=== PATIENT | female | born 1995 | race Two or more races ===

== ENCOUNTER 2025-03-15 19:23 | Emergency (ER) | payer MEDICAID ==
[~2025-03-15] VITALS: Ht 147.3 cm; Wt 85.2 kg
[2025-03-15 19:57] LABS: Hematocrit 36.6 % (36.0-46.0); Hemoglobin 12.6 g/dL (12.2-16.2); Mean Corpuscular Hemoglobin 32.5 pg (28.0-32.0); Mean Corpuscular Volume 94.5 fL (80.0-100.0); Nucleated Red Blood Cells % 0.0 %
[2025-03-15 20:02] LABS: Potassium 4.0 mmol/L (3.5-5.1); Sodium 142 mmol/L (136-145)
[2025-03-15 20:03] LABS: Anion Gap 6 (5-15); Calcium 9.9 mg/dL (8.7-10.4); Carbon Dioxide 27 mmol/L (20-31)
[2025-03-15 20:08] LABS: BUN/Creatinine Ratio 7.0 (10.0-20.0); Glucose 90 mg/dL (74-106)
[2025-03-15 20:11] LABS: Urine Amorphous Crystal FEW /hpf (None Seen); Urine Protein, UAD Negative (Negative)
[2025-03-15 20:18] LABS: Blood Urea Nitrogen 7 mg/dL (9-23); Chloride 109 mmol/L (98-107)
[2025-03-15] MEDS ORDERED: NITR-87 PO (20:27)
--- NOTE | 2025-03-15 20:27 | ED.PDOC ---
General HPI Comments 29-year-old female presents to ER with complaints of pelvic pain x2 days. Patient reports she has been experiencing diffuse lower pelvic pain x2 days. Reports that she has been taking Tylenol for her pain without relief and rates her current diffuse lower pelvic pain a 10/. Patient presents to ER ambulatory on arrival, afebrile, with steady gait, in no distress. Denies fever, body aches, chills, nausea/vomiting, abdominal pain, back/flank pain, changes in urination or any further symptoms/complaints Chief Complaint: Pelvic Pain Time Seen by MD: 19:35 Primary Care Provider: UNKNOWN Reviewed notes: Nurses Notes, Medications, Allergies Allergies: Coded Allergies: NO KNOWN ALLERGIES (Unverified , 03/15/25) Home Meds Active Scripts Nitrofurantoin Monohydrate Mac (Macrobid) 100 Mg Cap, 100 MG PO BID for 5 Days, #10 CAP 0 Refills Prov:YOLANDA MEZA 03/15/25 Information Source: Patient Mode of Arrival: Ambulatory Past Medical History PAST MEDICAL HISTORY: Denies Surgical History: Tubal Ligation WEEDER THINNER History: No Pertinent WEEDER THINNER History Family History Family History: Unknown Social History Smoker: Non-Smoker Alcohol: Denies ETOH Use Drugs: Denies Drug Use Lives In: Home Constitutional: denies: chills, diaphoresis, fatigue, fever, malaise, sweats, weakness, others EENTM: denies: blurred vision, double vision, ear bleeding, ear discharge, ear drainage, ear pain, ear ringing, eye pain, eye redness, hearing loss, mouth pain, mouth swelling, nasal discharge, nose bleeding, nose congestion, nose pain, photophobia, tearing, throat pain, throat swelling, voice changes, others Respiratory: denies: cough, hemoptysis, orthopnea, SOB at rest, shortness of breath, SOB with excertion, stridor, wheezing, others Cardiovascular: denies: chest pain, dizzy spells, diaphoresis, Dyspnea on exertion, edema, irregular heart beat, left arm pain, lightheadedness, palpitations, PND, syncope, others Gastrointestinal: denies: abdomen distended, abdominal pain, blood streaked bowels, constipated, diarrhea, dysphagia, difficulty swallowing, hematemesis, melena, nausea, poor appetite, poor fluid intake, rectal bleeding, rectal pain, vomiting, others Genitourinary: reports: others (As stated in HPI) Neurological: denies: dizziness, fainting, headache, left sided numbness, left sided weakness, numbness, paresthesia, pre-existing deficit, right sided numbness, right sided weakness, seizure, speech problems, tingling, tremors, weakness, others Musculoskeletal: denies: back pain, gout, joint pain, joint swelling, muscle pain, muscle stiffness, neck pain, others Integumetry: denies: bruises, change in color, change in hair/nails, dryness, laceration, lesions, lumps, rash, wounds, others Allergic/Immunocompromised: denies: Difficulty Healing, Frequent Infections, Hives, Itching, others Hematologic/Lymphatic: denies: anemia, blood clots, easy bleeding, easy bruising, swollen glands, others Endocrine: denies: excessive hunger, excessive sweating, excessive thirst, excessive urination, flushing, intolerance to cold, intolerance to heat, unexplained weight gain, unexplained weight loss, others Psychiatric: denies: anxiety, bipolar disorder, depression, hopeless, panic disorder, schizophrenia, sleepless, suicidal, others Physical Exam General Appearance: No Apparent Distress, Obese HEENT: PERRL/EOMI Neck: Full Range of Motion, Non-Tender, Normal Respiratory: Chest Non-Tender, Lungs Clear, No Accessory Muscle Use, No Respiratory Distress, Normal Breath Sounds Cardiovascular: No Murmur, No Gallop, Regular Rate/Rhythm Breast Exam: Deferred Gastrointestinal: No Organomegaly, No Pulsatile Mass, Normal Bowel Sounds, Soft, Other (TTP diffuse to lower pelvic region noted. No TTP to abdomen appreciated) Genitalia: Deferred Pelvic: Deferred Rectal: Deferred Extremities: Normal capillary refill, Normal range of motion Neurologic: Alert, No Motor Deficits, Normal Affect, Normal Mood, No Sensory Deficits Cerebellar Function: Normal Reflexes: Normal Skin: Dry, Normal Color, Warm Peripheral Pulses: 2+ Radial (R), 2+ Radial (L), 2+ Brachial (R), 2+ Brachial (L) Lymphatic: No Adenopathy Was a procedure done? Was a procedure done?: No Sedation Sedation?: No Differential Diagnosis Kidney stone (Female): Ectopic Urinary Problem (Female): Intrauterine , Pyelonephritis, Urinary retention, Urolithiasis X-Ray, Labs, Meds, VS Vital Signs Date Time Temp Pulse Resp B/P (MAP) Pulse Ox O2 Delivery O2 Flow Rate FiO2 03/15/25 20:40 99.0 94 19 133/94 (107) 100 99.0 03/15/25 20:40 94 19 100 Room Air 03/15/25 19:28 98.4 78 18 159/102 97 98.4 Lab Test 03/15/25 19:44 03/15/25 19:42 Range/Units White Blood Count 12.8 H 4.4-10.8 10^3/uL Red Blood Count 3.87 L 4.0-5.20 10^6/uL Hemoglobin 12.6 12.2-16.2 g/dL Hematocrit 36.6 36.0-46.0 % Mean Corpuscular Volume 94.5 80.0-100.0 fL Mean Corpuscular Hemoglobin 32.5 H 28.0-32.0 pg Mean Corpuscular Hemoglobin Concent 34.4 32.0-36.0 g/dL Red Cell Distribution Width 13.1 11.8-14.3 % Platelet Count 320 140-450 10^3/uL Mean Platelet Volume 6.7 L 6.9-10.8 fL Neutrophils (%) (Auto) 67.6 37.0-80.0 % Lymphocytes (%) (Auto) 19.7 10.0-50.0 % Monocytes (%) (Auto) 9.4 0.0-12.0 % Eosinophils (%) (Auto) 2.3 0.0-7.0 % Basophils (%) (Auto) 1.0 0.0-2.0 % Neutrophils # (Auto) 8.6 1.6-8.6 10 ^3/uL Lymphocytes # (Auto) 2.5 0.4-5.4 10 ^3/uL Monocytes # (Auto) 1.2 0-1.3 10 ^3/uL Eosinophils # (Auto) 0.3 0-0.8 10 ^3/uL Basophils # (Auto) 0.1 0-0.2 10 ^3/uL Nucleated Red Blood Cells 0.0 % Sodium Level 142 136-145 mmol/L Potassium Level 4.0 3.5-5.1 mmol/L Chloride Level 109 H 98-107 mmol/L Carbon Dioxide Level 27 20-31 mmol/L Anion Gap 6 5-15 Blood Urea Nitrogen 7 L 9-23 mg/dL Creatinine 1.00 0.550-1.02 mg/dL Glomerular Filtration Rate Calc 77 >90 mL/min BUN/Creatinine Ratio 7.0 L 10.0-20.0 Serum Glucose 90 74-106 mg/dL Calcium Level 9.9 8.7-10.4 mg/dL Urine Color Colorless Yellow Urine Clarity Clear Clear Urine pH 5.5 5.0-9.0 Urine Specific [place] 1.003 1.001-1.035 Urine Protein Negative Negative Urine Ketones Negative Negative Urine Blood Negative Negative /uL Urine Nitrite Negative Negative Urine Bilirubin Negative Negative Urine Urobilinogen Normal Negative mg/dL Urine Leukocyte Esterase 1+ Negative /uL Urine RBC 3 0 - 4 /hpf Urine Microscopic WBC 1 0-5 /HPF Urine Squamous Epithelial Cells Few <5 /hpf Urine Amorphous Crystals Few None Seen /hpf Urine Bacteria Few H None Seen /hpf Urine Glucose Normal Normal mg/dL Urine Test Negative Negative Current Medications Medications (Trade) Dose Ordered Sig/Jeff Route Start Time Stop Time Status Last Admin Ceftriaxone Sodium (Rocephin) 1,000 mg ONCE ONCE IM 03/15/25 20:30 03/15/25 20:31 DC 03/15/25 21:07 Ketorolac Tromethamine (Toradol Injection) 60 mg ONCE ONCE IM 03/15/25 20:30 03/15/25 20:31 DC 03/15/25 21:07 PATIENT: RICK REDACCT: [id number]: [id number] : 1995 LOC: ER ROOM / BED: / AGE / SEX: 29 / F ADM STATUS: REG ER SERVICE 22 ORDERING PHYSICIAN: YOLANDA MEZA PROCEDURE(s): PELUS - PELVIC REASON: pelvic pain ORDER NUMBER(s): [id number], ACCESSION NUMBER(s): [id number] INDICATION: pelvic pain TECHNIQUE: Multiple real-time grayscale transabdominal sonographic images along with color and duplex Doppler of the uterus and ovaries were obtained. COMPARISON: None FINDINGS: The uterus measures 6.9 x 3.8 x 6.3 cm. cm. The endometrial stripe measures 1.0 mm. The right ovary measures 3.1 x 2.2 x 2.4 cm. Ovarian volume is 8.44 mL. The left ovary measures 3.1 x 2.8 x 2.8 cm. Left ovarian volume is 12.62 mL. Subsequent color and duplex Doppler interrogation of the ovaries demonstrated symmetric vascular flow to both ovaries, though this does not exclude the possibility of torsion due to the dual blood supply. IMPRESSION: 1. Grossly unremarkable pelvic ultrasound. 2. Uterus appears normal 3. Bilateral ovaries appear normal 4. Small amount of fluid in the cul-de-sac. ATED BY: PARIS SWAN Jr., DO DICTATED DATE/TIME: 03/15/252122 SIGNED BY: PARIS SWAN Jr., SIGNED DATE/TIME: 03/15/252122 CC: CBC reviewed-WBC 12.8 BMP reviewed without any significant abnormalities Urinalysis reviewed-urine leukocyte esterase 1+, urine blood negative, urine nitrites negative Urine reviewed-negative Pelvic ultrasound reviewed Toradol 60 mg IM ordered Rocephin 1 g IM ordered Patient well appearing, afebrile, had improvement in symptoms and in no distress prior to discharge Advised to drink plenty of fluids Advised to follow up with PCP in 1-2 days Patient verbalized understanding agreeable with current plan of care Advised to return to ER immediately if symptoms Images Reviewed?: Images reviewed and evaluated by me Time of 1ST Reevaluation: 20:02 Reevaluation 1ST: N/A Patient Education/Counseling: Diagnosis, Treatment, Prognosis, Need For Follow Up Family Education/Counseling: No Family Present SEPSIS Sepsis Screen Date sepsis recognized/suspect: Mar 15, 2025 Time Sepsis recognized/suspect: 1927 Recent Procedure: No On Antibiotic Therapy: No Respiratory Rate >20: No Heart Rate >90: No Temp<36 C (96.8 F) or >38.3 C: No SBP <90 or MAP <65 mmHG: No New Acute Mental Status Change: No Is the patient on CPAP, BIPAP,: No Physician Orders Pelvic (03/15/25 20:23) Urine Bacterial Culture (03/15/25 20:28) Transvaginal Us Non Ob (03/15/25 ) Vital Signs Date Time Temp Pulse Resp B/P (MAP) Pulse Ox O2 Delivery O2 Flow Rate FiO2 03/15/25 20:40 99.0 94 19 133/94 (107) 100 99.0 03/15/25 20:40 94 19 100 Room Air 03/15/25 19:28 98.4 78 18 159/102 97 98.4 Laboratory Tests Test 03/15/25 19:44 White Blood Count 12.8 10^3/uL (4.4-10.8) H Medications Medications Dose Ordered Sig/Jeff Route Start Time Stop Time Status Last Admin Dose Admin Ceftriaxone Sodium 1,000 mg ONCE ONCE IM 03/15/25 20:30 03/15/25 20:31 DC 03/15/25 21:07 Ketorolac Tromethamine 60 mg ONCE ONCE IM 03/15/25 20:30 03/15/25 20:31 DC 03/15/25 21:07 Departure 1 Departure Time of Disposition: 20:25 Impression: Primary Impression: UTI (urinary tract infection) Qualified Codes: N30.00 - Acute cystitis without hematuria Additional Impression: Acute pelvic pain Disposition: HOME / SELF CARE / HOMELESS Condition: Stable e-Prescriptions Nitrofurantoin Monohydrate Mac (Macrobid) 100 Mg Cap 100 MG PO BID for 5 Days, #10 CAP 0 Refills Prov: YOLANDA MEZA 03/15/25 Discharged With: Self Critical Care Note Critical Care Time?: No Stability Stability form required: No Heart Score Heart Score: Heart Score Response (Comments) Value History N/A 0 EKG N/A 0 Age N/A 0 Risk Factors N/A 0 Troponin N/A 0 Total 0 YOLANDA MEZA Mar 15, 2025 20:27
[2025-03-15 20:40] VITALS: BP 133/94; PULSE 94; RESP 19; TEMP 99; O2SAT 100
[2025-03-15] MEDS: KETOROLAC TROMETH 60MG/2ML VIAL IM ONE (21:07)
[2025-03-15] MEDS: cefTRIAXone SOD 1,000 MG VL IM ONE (21:07)
[2025-03-15] MEDS: LIDOCAINE 1% HCL (LOCAL ANESTH.) INJ 20ML MDV ONE (21:12)
--- NOTE | 2025-03-15 21:26 | DVH ---
INDICATION: pelvic pain TECHNIQUE: Multiple real-time grayscale transabdominal sonographic images along with color and duplex Doppler of the uterus and ovaries were obtained. COMPARISON: None FINDINGS: The uterus measures 6.9 x 3.8 x 6.3 cm. cm. The endometrial stripe measures 1.0 mm. The right ovary measures 3.1 x 2.2 x 2.4 cm. Ovarian volume is 8.44 mL. The left ovary measures 3.1 x 2.8 x 2.8 cm. Left ovarian volume is 12.62 mL. Subsequent color and duplex Doppler interrogation of the ovaries demonstrated symmetric vascular flow to both ovaries, though this does not exclude the possibility of torsion due to the dual blood supply. IMPRESSION: 1. Grossly unremarkable pelvic ultrasound. 2. Uterus appears normal 3. Bilateral ovaries appear normal 4. Small amount of fluid in the cul-de-sac.
== END 2025-03-15 21:46 | disposition home or self-care (01) ==
LOC: ER 19:23
DX: N39.0 Urinary tract infection, site not specified (principal); R10.20 Pelvic and perineal pain unspecified side; Z98.51 Tubal ligation status; Z79.899 Other long term (current) drug therapy
CPT/HCPCS: 36415; 76830; 76856; 80048; 81001; 81025; 85025; 87086; 96372; 99285; J0696; J1885; J2003